=== PATIENT | female | born 1950 | race Caucasian/White ===

== ENCOUNTER → 2017-05-12 | Day surgery (SDC) | payer MEDICARE ==
[~2017-05-12] MED LIST: BUPIVACAINE/EPINEPHRINE 0.5% PF 10 ML VIAL ONE; KETOROLAC TROMETHAMINE 30 MG/ML (IVP) VIAL IV PUSH ONE; LACTATED RINGER'S 1000 ML INJ 1,000 ML ONE; MIDAZOLAM HCL 2 MG/2 ML VIAL ONE; ONDANSETRON HCL 4 MG/2 ML VIAL IV PUSH ONE; PROPOFOL 200 MG/20 ML AMP IV ONE; Z.0.NO CURRENT MEDS; ceFAZolin INJ 1,000 MG VIAL ONE
--- NOTE | 2017-05-12 18:19 | TN ---
cc: MARIOLA GEORGE MD DATE OF SURGERY 05/12/2017 PREOPERATIVE DIAGNOSIS 1. Internal derangement right knee 2. Probable medial meniscal tear right knee. 3. Osteoarthritis right knee. POSTOPERATIVE DIAGNOSIS 1. Complex tear posterior medial meniscus. 2. Osteoarthritis of the right knee PROCEDURE 1. Arthroscopy of the right knee. 2. Arthroscopic medial meniscectomy. 3. Minor abrasion chondroplasty. SURGEON Duncan George MD ANESTHESIA General. BLOOD LOSS Minimal. INDICATION This is a 67-year-old female with significant right knee pain. Investigative studies shows evidence of a torn medial meniscus. She presents for surgical treatment. PROCEDURE IN DETAIL The patient was brought to the operating room, anesthetized in supine position. The right leg was scrubbed with alcohol followed by Hibiclens followed by Chloraprep and draped sterilely. Antibiotics were given within a 1 hour time window and a time-out was done. Inflow was established anterior and laterally. The suprapatellar pouch was unremarkable. Retropatellar surface was normal. There was some evidence of chondrocalcinosis. The medial compartment showed a complex tear of the medial meniscus starting from the 2 o'clock position to the posterior horn. There is a radial tear at the 1 o'clock position. There was mild chondromalacia at the medial compartment. The ACL was normal. The lateral compartment was normal except a large defect in the articular surface about half the size of a dime of a full-thickness cartilage loss and appeared traumatic. No loose bodies were seen. A spinal needle was introduced along the lateral joint line. Straight and angled punches were used to take the meniscus back to a stable rim. The fragments were floated free from the joint. The wound was irrigated copiously and minor abrasion chondroplasty was necessary along the femoral condyle. The portals were injected with 0.5% Marcaine with epinephrine. They were closed with Steri-Strips and Benzoin. Sterile dressing was applied. The patient was awakened and taken to recovery room in satisfactory condition. Mariola George MD [facility] [place]/ /4:59 PM /6:13 PM
== END | disposition home or self-care (01) ==
LOC: ESDC 13:13
PROVIDERS: ATTEND Orthopaedic Surgery Orthopaedic Surgery of the Spine
DX: S83.231A Complex tear of medial meniscus, current injury, right knee, initial encounter (principal); M17.11 Unilateral primary osteoarthritis, right knee
CPT/HCPCS: 01400; 29881; J0690; J1885; J2250; J2405; J3010; J7120